=== PATIENT | male | born 1995 | race American Indian/Alaskan Native ===

== ENCOUNTER 2021-07-17 13:54 | Emergency (ER) | payer SELFPAY ==
[2021-07-17 15:19] VITALS: BP 109/49
--- NOTE | 2021-07-17 17:45 | XRay Report ---
RIGHT ANKLE 3 VIEW INDICATION / CLINICAL INFORMATION: ankle edema after playing basketball. COMPARISON: None available. FINDINGS: BONES / JOINT(S): No acute fracture or subluxation. No other significant abnormality. SOFT TISSUES: Soft tissue swelling in the ankle. ADDITIONAL FINDINGS: None. IMPRESSION: 1. No acute findings. Signer Name: Chon Delvalle MD Signed: 07/17/2021 5:40 PM Workstation Name: [id number]
--- NOTE | 2021-07-17 18:21 | Emergency Department Report ---
ED Lower Extremity HPI - General Chief Complaint: Extremity Injury, Lower Stated Complaint: RT LEG PAIN Source: patient Mode of arrival: Ambulatory Limitations: No Limitations - History of Present Illness Initial Comments: 25-year-old male presents to the ED complaining right ankle pain x3 days. Patient states that he was playing basketball as he was attempting to step back what he felt like something kicked him in the back of his leg. Patient states that he is unable to bear weight without pain. Patient has obvious edema noted to the right ankle. Patient ambulatory with crutches. Patient denies any pain at present time. Patient states taking Motrin 800 mg prior to arrival. Patient has no distracting injury noted. Patient is alert and oriented x3. No acute distress noted. No ill appearance noted. MD Complaint: ankle injury Onset/Timin -: days(s) Injury: Ankle: Right Place: street/outdoors Severity scale (0 -10): 0 Improves With: NSAID Context: walking Associated Symptoms: snap/pop sensation, swelling, unable to bear weight Treatments Prior to Arrival: NSAIDS - Related Data Previous Rx's Medication Instructions Recorded Last Taken Type Ibuprofen [Motrin] 800 mg PO Q8HR PRN 15 Days #30 07/17/21 Unknown Rx tablet Allergies Allergy/AdvReac Type Severity Reaction Status Date / Time No Known Allergies Allergy Verified 07/17/21 15:16 ED Review of Systems ROS: Stated complaint: RT LEG PAIN Other details as noted in HPI Constitutional: denies: chills, fever Eyes: denies: eye pain, eye discharge, vision change ENT: denies: ear pain, throat pain Respiratory: denies: cough, shortness of breath, wheezing Cardiovascular: denies: chest pain, palpitations Endocrine: no symptoms reported Gastrointestinal: denies: abdominal pain, nausea, diarrhea Genitourinary: denies: urgency, dysuria Musculoskeletal: denies: back pain, joint swelling, arthralgia Skin: other (ankle pain). denies: rash, lesions Neurological: denies: headache, weakness, paresthesias Psychiatric: denies: anxiety, depression Hematological/Lymphatic: denies: easy bleeding, easy bruising ED Past Medical Hx - Medications Home Medications: Home Medications Medication Instructions Recorded Confirmed Last Taken Type Ibuprofen [Motrin] 800 mg PO Q8HR PRN 15 Days #30 07/17/21 Unknown Rx tablet ED Physical Exam - General Limitations: No Limitations General appearance: alert, in no apparent distress - Head Head exam: Present: atraumatic, normocephalic - Eye Eye exam: Present: normal appearance - ENT ENT exam: Present: mucous membranes moist - Neck Neck exam: Present: normal inspection - Respiratory Respiratory exam: Present: normal lung sounds bilaterally. Absent: respiratory distress - Cardiovascular Cardiovascular Exam: Present: regular rate, normal rhythm. Absent: systolic murmur, diastolic murmur, rubs, gallop - GI/Abdominal GI/Abdominal exam: Present: soft, normal bowel sounds - Rectal Rectal exam: Present: deferred - Extremities Exam Extremities exam: Present: normal inspection - Back Exam Back exam: Present: normal inspection - Neurological Exam Neurological exam: Present: alert, oriented X3 - Psychiatric Psychiatric exam: Present: normal affect, normal mood - Skin Skin exam: Present: warm, dry, intact, normal color. Absent: rash ED Course Vital Signs 07/17/21 15:18 Temperature 98.3 F Pulse Rate 56 L Respiratory 16 Rate Blood Pressure 109/49 O2 Sat by Pulse 100 Oximetry ED Lower Extremity MDM - Radiology Data [facility] [address] [place] [address] XRay Report Signed Patient: KATHLEEN CUNHA R#: [id number] : 1995 Acct:[id number] Age/Sex: 25 / M ADM Date: 07/17/21 Loc: ED Attending Dr: Ordering Physician: JUAN MOORE Date of Service: 07/17/21 Procedure(s): XR ankle 3+V RT Accession Number(s): [id number] cc: JUAN MOORE Fluoro Time In Minutes: RIGHT ANKLE 3 VIEW INDICATION / CLINICAL INFORMATION: ankle edema after playing basketball. COMPARISON: None available. FINDINGS: BONES / JOINT(S): No acute fracture or subluxation. No other significant abnormality. SOFT TISSUES: Soft tissue swelling in the ankle. ADDITIONAL FINDINGS: None. IMPRESSION: 1. No acute findings. Signer Name: Chon Delvalle MD Signed: 07/17/2021 5:40 PM Workstation Name: [id number] Transcribed By: JU Dictated By: Chon Delvalle MD Electronically Authenticated By: Chon Delvalle MD Signed Date/Time: 07/17/21 0674 DD/ 39 TD/TT: - Medical Decision Making 25-year-old male presents to the ED complaining right ankle pain x3 days. Patient states that he was playing basketball as he was attempting to step back what he felt like something kicked him in the back of his leg. Patient states that he is unable to bear weight without pain. Patient has obvious edema noted to the right ankle. Patient ambulatory with crutches. Patient denies any pain at present time. Patient states taking Motrin 800 mg prior to arrival. Patient has no distracting injury noted. Patient is alert and oriented x3. No acute distress noted. No ill appearance noted. Rechecked the patient is resting quietly quietly and comfortable and feeling better. I discussed the results of diagnostic study, my clinical impression and the plan for further treatment with the patient. Patient agrees with plan and discharge at this present time. All question addressed. I have given the patient instruction regarding a diagnosis ,expectation ,follow- up and return precaution. I explained to the patient that emergent condition may arise and to return to the ED for new worsen and any new persisting condition. I have explained the importance of following up with the primary care physician or referral physician listed below has instructed. The patient verbalized understanding of discharge instruction. Critical care attestation.: If time is entered above; I have spent that time in minutes in the direct care of this critically ill patient, excluding procedure time. ED Disposition Clinical Impression: Right ankle sprain Qualifiers: Encounter type: initial encounter Involved ligament of ankle: other ligament Qualified Code(s): S93.491A - Sprain of other ligament of right ankle, initial encounter Disposition: HOME / SELF CARE / HOMELESS Is pt being admited?: No Condition: Stable Instructions: Ankle Sprain, [id number], How to Use Cold Therapy Additional Instructions: Take medication as prescribed Return to the ED for any worsening symptom Prescriptions: Ibuprofen [Motrin] 800 mg PO Q8HR PRN 15 Days #30 tablet PRN Reason: Pain, Mild (1-3) Referrals: LUIZA ALTAMIRANO MD [Staff Physician] - 3-5 Days Forms: Work/School Release Form(ED)
== END 2021-07-17 18:49 | disposition home or self-care (01) ==
LOC: ED 13:54
DX: S93.401A Sprain of unspecified ligament of right ankle, initial encounter (principal); X58.XXXA Exposure to other specified factors, initial encounter; Y93.89 Activity, other specified; Y92.89 Other specified places as the place of occurrence of the external cause; Y99.8 Other external cause status
CPT/HCPCS: 99283